=== PATIENT | male | born 2000 | race African-American/Black ===

== ENCOUNTER 2022-10-27 11:43 | Emergency (ER) | payer SELFPAY ==
[~2022-10-27] VITALS: Ht 182.9 cm; Wt 85.7 kg
[2022-10-27 11:45] VITALS: BP_SYST 146
--- NOTE | 2022-10-27 11:45 | NUR ---
BROUGHT BACK TO BED #8 AND TRIAGED. REPORT GIVEN TO MEKHI
--- NOTE | 2022-10-27 12:18 | NUR ---
Pt brought by family, A&Ox4, pt presents to ER with R upper arm pain, bruising after falling downstairs few days ago, denies KO, skin pink and warm, cap refill <3, VSS, denies other injuries.
--- NOTE | 2022-10-27 12:30 | NUR ---
Dr Stafford evaluating patient at bedside
--- NOTE | 2022-10-27 13:32 | NUR ---
Patient given written and verbal discharge instructions and verbalizes understanding. ER MD discussed with patient the results and treatment provided. Patient in stable condition. ID arm band removed. No Rx given. Patient educated on pain management and to follow up with PMD. Pain Scale 2/10. Opportunity for questions provided and answered. Medication side effect fact sheet provided.
[2022-10-27 13:35] VITALS: BP_SYST 146
== END 2022-10-27 13:32 | disposition home or self-care (01) ==
LOC: SED 11:43
DX: S53.401A Unspecified sprain of right elbow, initial encounter (principal); S40.021A Contusion of right upper arm, initial encounter; Z79.899 Other long term (current) drug therapy; W10.9XXA Fall (on) (from) unspecified stairs and steps, initial encounter; Y93.89 Activity, other specified; Y92.89 Other specified places as the place of occurrence of the external cause; Y99.8 Other external cause status
CPT/HCPCS: 99283

== ENCOUNTER 2023-02-28 05:03 | Emergency (ER) | payer SELFPAY ==
[~2023-02-28] VITALS: Ht 182.9 cm; Wt 88.5 kg
[2023-02-28 05:20] VITALS: BP_SYST 153; PULSE 91; RESP 18; TEMP 97.7; O2SAT 99
[2023-02-28] MEDS ORDERED: ONDANSETRON 4 MG ODT TAB PO ONE (05:30)
[2023-02-28 05:54] LABS: COVID19 ANTIGEN SOFIA FIA NEGATIVE (NEGATIVE); INFLUENZA TYPE A negative (NEGATIVE); INFLUENZA TYPE B NEGATIVE (NEGATIVE)
[2023-02-28] MEDS ORDERED: D-ME118S48 PO ×2 (06:05)
[2023-02-28] MEDS ORDERED: ONDA-8 TL (06:09)
[2023-02-28 06:47] VITALS: BP_SYST 143; PULSE 85; RESP 17; TEMP 98; O2SAT 99
== END 2023-02-28 06:36 | disposition home or self-care (01) ==
LOC: SED 05:03
DX: K52.9 Noninfective gastroenteritis and colitis, unspecified (principal); R11.2 Nausea with vomiting, unspecified; R68.83 Chills (without fever); Z79.899 Other long term (current) drug therapy; Z20.822 Contact with and (suspected) exposure to COVID-19
CPT/HCPCS: 99283; 87426; 36415; 87804 ×2; Q0162